=== PATIENT | male | born 1960 | race Two or more races ===

== ENCOUNTER 2025-09-19 13:07 | Inpatient (IN) | payer MEDICARE, OTHER ==
[~2025-09-19] VITALS: Ht 165.1 cm; Wt 90.3 kg
[2025-09-19] MEDS ORDERED: IPRA3AMP23 IH (14:45)
[2025-09-19] MEDS ORDERED: PANT40TA49 PO (14:45)
[2025-09-19] MEDS ORDERED: MIDO10TA PO (14:45)
[2025-09-19] MEDS ORDERED: APIX5TAB PO (14:45)
[2025-09-19] MEDS ORDERED: INSU100V39 SQ (14:45)
[2025-09-19] MEDS ORDERED: FAMO20TA8 PO (14:45)
[2025-09-19] MEDS ORDERED: GABA400C PO (14:45)
[2025-09-19] MEDS ORDERED: POLY17PO4 PO (14:45)
[2025-09-19] MEDS ORDERED: GLUC1KIT IJ (14:45)
[2025-09-19] MEDS ORDERED: BISA10SU11 RC (14:45)
[2025-09-19] MEDS ORDERED: CALC-343 PO (14:45)
[2025-09-19] MEDS ORDERED: IBUP-1957 PO (14:45)
[2025-09-19] MEDS ORDERED: LACT10SO29 PO (14:45)
[2025-09-19] MEDS ORDERED: MELA5TAB PO (14:45)
[2025-09-19] MEDS ORDERED: ASCO250T23 PO (14:45)
[2025-09-19] MEDS ORDERED: ONDA-97 PO (14:45)
[2025-09-19] MEDS ORDERED: HYDR-4303 PO (14:45)
[2025-09-19] MEDS ORDERED: LIDO700A30 TP (14:45)
[2025-09-19] MEDS ORDERED: FOLI0.8T2 PO (14:45)
[2025-09-19 14:56] LABS: PLATELET COUNT (AUTO) 711 K/uL (150-450); RED BLOOD CELL COUNT(AUTO) 4.11 MIL/uL (4.5-6.0); RED CELL DISTRIBUTION WIDTH 16.8 % (11.5-15.0); WHITE BLOOD COUNT (AUTO) 18.8 K/uL (4.3-11.0)
[2025-09-19 15:05] LABS: CALCIUM, SERUM 10.0 mg/dL (8.5-10.1); CREATININE 3.5 mg/dL (0.6-1.3); SODIUM SERUM 133.0 mmol/L (136-145); UREA NITROGEN, BLOOD 22.0 mg/dL (7-18)
[2025-09-19] MEDS ORDERED: CEFTRIAXONE 1GM BAG (ER ONLY) 50 ML IV ONE (15:59)
[2025-09-19] MEDS: CEFTRIAXONE 1 G in IV D5W 50 ML IV ONE (16:00)
[2025-09-19] MEDS: AZITHROMYCIN 500 MG in IV D5W 250 ML IV ONE (16:30)
[2025-09-19] MEDS ORDERED: POLYETHYLENE GLYCOL 3350 17 GM POWD.PACK PO PRN (17:00)
[2025-09-19] MEDS ORDERED: MAG HYDROX/AL HYDROX/SIMETH 30 ML UDC PO PRN (17:00)
[2025-09-19] MEDS ORDERED: BISACODYL SUPP (10 MG) 10 MG/SUPP.RECT SUPP.RECT RC PRN (17:00)
[2025-09-19] MEDS: APIXABAN 5 MG TABLET PO SCH (17:00)
[2025-09-19] MEDS ORDERED: Z GUARD REMEDY 4 OZ OINT TP PRN (17:00)
[2025-09-19] MEDS ORDERED: IBUPROFEN 800 MG TABLET PO PRN (17:00)
[2025-09-19] MEDS ORDERED: ONDANSETRON HCL/PF 4 MG/2 ML VIAL IVP PRN (17:00)
[2025-09-19] MEDS: FAMOTIDINE (20 MG) 20 MG TABLET PO SCH (17:00)
[2025-09-19] MEDS ORDERED: MAGNESIUM HYDROXIDE 30 ML UDC PO PRN (17:00)
[2025-09-19] MEDS ORDERED: Medication Not On Formulary EA (Ondansetron Hcl 4 MG) PO PRN (17:00)
[2025-09-19] MEDS ORDERED: LIDOCAINE 5% (PATCH) 1 EA PATCH TP PRN (17:00)
[2025-09-19] MEDS ORDERED: ZOLPIDEM TARTRATE 5 MG TABLET PO PRN (17:00)
[2025-09-19] MEDS ORDERED: IBUPROFEN 400 MG TABLET PO PRN (17:30)
[2025-09-19] MEDS ORDERED: ALBUTEROL FS 2.5 MG/3 ML VIAL.NEB NEB PRN (17:30)
[2025-09-19] MEDS ORDERED: IPRATROPIUM NEB FS 0.5 MG/2.5 ML AMPUL.NEB NEB PRN (17:30)
[2025-09-19] MEDS ORDERED: CALCIUM CARBONATE 500 MG TAB.CHEW PO PRN (17:30)
[2025-09-19 20:00] VITALS: BP 124/67; TEMP 97.7; O2SAT 95
[2025-09-19] MEDS: LACTULOSE 10 G/15 ML UDC (PYXIS) PO SCH (21:48)
[2025-09-19] MEDS ORDERED: DOSING PER PHARMACY-VANCOMYCIN IV XX PRN (22:00)
[2025-09-19] MEDS: VANCOMYCIN 1 GM /D5W 250 ML PB IV ONE (22:30)
[2025-09-19] MEDS ORDERED: CEFEPIME 1 GM VIAL ONE (22:39)
[2025-09-19] MEDS: CEFEPIME 1 GM in IV D5W 50 ML IV SCH (22:46)
[2025-09-19] MEDS: VANCOMYCIN 1.5 GM in IV D5W 500 ML IV ONE (23:17)
[2025-09-20] VITALS: BP 124/82; TEMP 98.1; O2SAT 100
[2025-09-20 04:00] VITALS: BP 117/74; TEMP 98.6; O2SAT 97
[2025-09-20 07:00] VITALS: BP 114/72; TEMP 97.3; O2SAT 100
[2025-09-20 07:48] LABS: PLATELET COUNT (AUTO) 541 K/uL (150-450); RED BLOOD CELL COUNT(AUTO) 3.96 MIL/uL (4.5-6.0); RED CELL DISTRIBUTION WIDTH 16.7 % (11.5-15.0); WHITE BLOOD COUNT (AUTO) 11.7 K/uL (4.3-11.0)
[2025-09-20 07:59] LABS: CALCIUM, SERUM 9.7 mg/dL (8.5-10.1); CREATININE 4.4 mg/dL (0.6-1.3); PHOSPHORUS 3.5 mg/dL (2.5-4.9); SODIUM SERUM 131.0 mmol/L (136-145); UREA NITROGEN, BLOOD 31.0 mg/dL (7-18)
[2025-09-20] MEDS: PANTOPRAZOLE 40 MG TABLET.DR PO SCH (08:22)
[2025-09-20] MEDS: ASCORBIC ACID 500 MG TABLET PO SCH (08:22)
[2025-09-20] MEDS: GABAPENTIN 400 MG CAPSULE PO SCH (08:22)
[2025-09-20] MEDS: VIT B CMPLX 3/FA/VIT C/BIOTIN 1 TAB TABLET PO SCH (08:22)
[2025-09-20 11:00] VITALS: BP 100/65; TEMP 97.3; O2SAT 100
[2025-09-20] MEDS ORDERED: DEXTROSE 50%-WATER 50 ML DISP.SYRIN IV PRN (11:00)
[2025-09-20] MEDS: HYDROCODONE/APAP 5/325MG TABLET PO PRN (11:01)
[2025-09-20] MEDS: BLOOD SUGAR DIAGNOSTIC 1 EACH STRIP VI SCH (11:47)
[2025-09-20] MEDS: INSULIN REGULAR, HUMAN 100 UNIT/ML 3 ML VIAL SQ PRN (11:51)
[2025-09-20] MEDS ORDERED: GLUCAGON,HUMAN RECOMBINANT 1 MG/VIAL VIAL IV PRN (14:00)
[2025-09-20 15:00] VITALS: BP 123/71; TEMP 97.3; O2SAT 100
[2025-09-20] MEDS ORDERED: CEFTRIAXONE 1 G in IV D5W 50 ML IV SCH (16:00)
[2025-09-20] MEDS ORDERED: AZITHROMYCIN 500 MG in IV D5W 250 ML IV SCH (16:30)
[2025-09-20 20:00] VITALS: BP 110/72; TEMP 97.3; O2SAT 100
[2025-09-21] VITALS: BP 112/69; TEMP 98.1; O2SAT 100
[2025-09-21 04:00] VITALS: BP 117/52; TEMP 98.1; O2SAT 100
[2025-09-21 06:53] LABS: PLATELET COUNT (AUTO) 580 K/uL (150-450); RED BLOOD CELL COUNT(AUTO) 4.24 MIL/uL (4.5-6.0); RED CELL DISTRIBUTION WIDTH 16.1 % (11.5-15.0); WHITE BLOOD COUNT (AUTO) 12.4 K/uL (4.3-11.0)
[2025-09-21 07:22] LABS: CALCIUM, SERUM 10.0 mg/dL (8.5-10.1); CREATININE 5.4 mg/dL (0.6-1.3); PHOSPHORUS 4.4 mg/dL (2.5-4.9); SODIUM SERUM 131.0 mmol/L (136-145); UREA NITROGEN, BLOOD 39.0 mg/dL (7-18)
[2025-09-21 08:00] VITALS: BP 126/71; TEMP 97.7; O2SAT 100
[2025-09-21 12:00] VITALS: BP 90/56; TEMP 97.6; O2SAT 94
[2025-09-21] MEDS: ALBUMIN 25% 25 GM in PREMIX 1 EA IV STA (17:59)
[2025-09-21 20:00] VITALS: BP 137/75; TEMP 97.4; TEMP 97.5; O2SAT 100
[2025-09-21] MEDS: VANCOMYCIN 500 MG in IV D5W 100 ML IV PRN (21:04)
[2025-09-21] MEDS: *INSULIN REGULAR(HUMULIN R)HUM 100 UNIT/ML VIAL SQ PRN (22:24)
[2025-09-22] VITALS: BP 128/71; TEMP 97.7; O2SAT 98
[2025-09-22 05:00] VITALS: BP 126/56; TEMP 97.8; O2SAT 100
[2025-09-22 06:40] LABS: PLATELET COUNT (AUTO) 564 K/uL (150-450); RED BLOOD CELL COUNT(AUTO) 4.01 MIL/uL (4.5-6.0); RED CELL DISTRIBUTION WIDTH 16.8 % (11.5-15.0); WHITE BLOOD COUNT (AUTO) 12.1 K/uL (4.3-11.0)
[2025-09-22 06:55] LABS: CALCIUM, SERUM 9.8 mg/dL (8.5-10.1); CREATININE 3.9 mg/dL (0.6-1.3); PHOSPHORUS 2.8 mg/dL (2.5-4.9); SODIUM SERUM 133.0 mmol/L (136-145); UREA NITROGEN, BLOOD 20.0 mg/dL (7-18)
[2025-09-22 08:00] VITALS: BP 132/68; TEMP 97.7; O2SAT 100
[2025-09-22 16:00] VITALS: BP 105/57; TEMP 98.1; O2SAT 98
[2025-09-22 20:00] VITALS: BP 119/69; TEMP 99; O2SAT 99
[2025-09-23 08:00] VITALS: BP 120/82; TEMP 99; O2SAT 99
[2025-09-23 11:23] LABS: PLATELET COUNT (AUTO) 561 K/uL (150-450); RED BLOOD CELL COUNT(AUTO) 4.15 MIL/uL (4.5-6.0); RED CELL DISTRIBUTION WIDTH 16.9 % (11.5-15.0); WHITE BLOOD COUNT (AUTO) 13.8 K/uL (4.3-11.0)
[2025-09-23 11:33] LABS: CALCIUM, SERUM 10.1 mg/dL (8.5-10.1); CREATININE 5.5 mg/dL (0.6-1.3); PHOSPHORUS 4.0 mg/dL (2.5-4.9); SODIUM SERUM 135.0 mmol/L (136-145); UREA NITROGEN, BLOOD 29.0 mg/dL (7-18)
[2025-09-23 12:00] VITALS: BP 113/72; TEMP 97.6; O2SAT 96
[2025-09-23] MEDS: BETAMETHASONE DIP 0.05% CREAM 15 GM TUBE TP SCH (13:07)
[2025-09-23 16:00] VITALS: BP 139/83; TEMP 98.6; O2SAT 98
[2025-09-23] MEDS: NEPRO VAN 237 ML CAN PO SCH (17:00)
[2025-09-23 20:00] VITALS: BP 114/75; TEMP 98.1; O2SAT 99
[2025-09-23] MEDS: MEROPENEM 500 MG in IV NS 0.9% 50 ML IV SCH (22:27)
[2025-09-24 07:25] LABS: PLATELET COUNT (AUTO) 569 K/uL (150-450); RED BLOOD CELL COUNT(AUTO) 3.99 MIL/uL (4.5-6.0); RED CELL DISTRIBUTION WIDTH 16.7 % (11.5-15.0); WHITE BLOOD COUNT (AUTO) 13.8 K/uL (4.3-11.0)
[2025-09-24 07:47] LABS: CALCIUM, SERUM 10.4 mg/dL (8.5-10.1); CREATININE 5.6 mg/dL (0.6-1.3); PHOSPHORUS 3.7 mg/dL (2.5-4.9); SODIUM SERUM 135.0 mmol/L (136-145); UREA NITROGEN, BLOOD 31.0 mg/dL (7-18)
[2025-09-24 08:00] VITALS: BP 112/63; TEMP 97.3; O2SAT 100
[2025-09-24] MEDS: ALTEPLASE CATHFLO 2 MG/VIAL XX ONE (11:57)
[2025-09-24 16:00] VITALS: BP 114/60; TEMP 98.8; O2SAT 99
[2025-09-24 20:00] VITALS: BP 144/99; TEMP 98.2; O2SAT 98
[2025-09-25 06:39] LABS: PLATELET COUNT (AUTO) 487 K/uL (150-450); RED BLOOD CELL COUNT(AUTO) 3.92 MIL/uL (4.5-6.0); RED CELL DISTRIBUTION WIDTH 16.8 % (11.5-15.0); WHITE BLOOD COUNT (AUTO) 11.1 K/uL (4.3-11.0)
[2025-09-25 06:54] LABS: CALCIUM, SERUM 9.9 mg/dL (8.5-10.1); CREATININE 4.0 mg/dL (0.6-1.3); PHOSPHORUS 3.0 mg/dL (2.5-4.9); SODIUM SERUM 130.0 mmol/L (136-145); UREA NITROGEN, BLOOD 18.0 mg/dL (7-18)
[2025-09-25 08:00] VITALS: BP 107/73; TEMP 98.6; O2SAT 94
[2025-09-25 16:00] VITALS: BP 107/70; TEMP 97.9; O2SAT 99
[2025-09-25 20:00] VITALS: BP 94/53; TEMP 97.2; O2SAT 100
[2025-09-26 13:28] LABS: CALCIUM, SERUM 9.8 mg/dL (8.5-10.1); CREATININE 3.1 mg/dL (0.6-1.3); SODIUM SERUM 133.0 mmol/L (136-145); UREA NITROGEN, BLOOD 15.0 mg/dL (7-18)
[2025-09-26 13:37] LABS: PLATELET COUNT (AUTO) 541 K/uL (150-450); RED BLOOD CELL COUNT(AUTO) 3.95 MIL/uL (4.5-6.0); RED CELL DISTRIBUTION WIDTH 17.2 % (11.5-15.0); WHITE BLOOD COUNT (AUTO) 11.9 K/uL (4.3-11.0)
[2025-09-26] MEDS ORDERED: GADOTERATE MEGLUMINE 10 MMOL/20 ML VIAL IV ONE (14:58)
[2025-09-26 16:00] VITALS: BP 93/64; TEMP 97.2; O2SAT 98
[2025-09-26 20:00] VITALS: BP 88/53; TEMP 98.1; O2SAT 98
[2025-09-26] MEDS: MIDODRINE HCL (5MG) 5 MG TABLET PO PRN (20:49)
[2025-09-27] VITALS: BP 100/58; TEMP 97.8; O2SAT 100
[2025-09-27 05:00] VITALS: BP 114/79; TEMP 98; O2SAT 96
[2025-09-27 08:00] VITALS: BP 116/75; TEMP 97.5; O2SAT 99
[2025-09-27] MEDS ORDERED: BETA15CR4 TP (08:56)
[2025-09-27 16:00] VITALS: BP 98/67; TEMP 98.1; O2SAT 99
[2025-09-27 20:00] VITALS: BP 70/53; TEMP 98.2; O2SAT 97
[2025-09-27] MEDS: ACETAMINOPHEN 325 MG TABLET PO PRN (20:35)
[2025-09-27] MEDS ORDERED: DOSING PER PHARMACY-GENTAMICIN IV XX PRN (23:00)
[2025-09-27] MEDS ORDERED: GENTAMICIN 80 MG/2 ML VIAL ONE (23:37)
[2025-09-27] MEDS: GENTAMICIN 450 MG in IV D5W 100 ML IV ONE (23:53)
[2025-09-28 07:00] VITALS: BP 103/66; TEMP 97.5; O2SAT 98
[2025-09-28] MEDS ORDERED: GENTAMICIN 120 MG in IV D5W 50 ML IV PRN (07:00)
[2025-09-28] MEDS ORDERED: GENT40VI2 IM/IV (14:53)
[2025-09-28 15:00] VITALS: BP 106/73; TEMP 97.7; O2SAT 98
[2025-09-28 20:00] VITALS: BP 98/60; TEMP 97.7; O2SAT 99
== END 2025-09-28 21:07 | DRG 871 ==
LOC: ER 13:28 → MED 17:01 → TELE 17:55 → MED 09-22 08:56
PROVIDERS: ADMIT Student in an Organized Health Care Education/Training Program; ATTEND Internal Medicine
PROC: 5A1D70Z Performance of Urinary Filtration, Intermittent, Less than 6 Hours Per Day (ICD-10-PCS; principal; 2025-09-21)
DX: A41.51 Sepsis due to Escherichia coli [E. coli] (principal); N18.6 End stage renal disease; I13.2 Hypertensive heart and chronic kidney disease with heart failure and with stage 5 chronic kidney disease, or end stage renal disease; M46.26 Osteomyelitis of vertebra, lumbar region; R18.8 Other ascites; E87.1 Hypo-osmolality and hyponatremia; E11.22 Type 2 diabetes mellitus with diabetic chronic kidney disease; B96.20 Unspecified Escherichia coli [E. coli] as the cause of diseases classified elsewhere; Z99.2 Dependence on renal dialysis; Z79.01 Long term (current) use of anticoagulants; D64.9 Anemia, unspecified; E66.9 Obesity, unspecified; Z16.12 Extended spectrum beta lactamase (ESBL) resistance; D75.839 Thrombocytosis, unspecified; N48.5 Ulcer of penis; I48.91 Unspecified atrial fibrillation; E11.40 Type 2 diabetes mellitus with diabetic neuropathy, unspecified; Z79.4 Long term (current) use of insulin; N48.0 Leukoplakia of penis; Z93.6 Other artificial openings of urinary tract status; E83.89 Other disorders of mineral metabolism; I50.9 Heart failure, unspecified; M46.46 Discitis, unspecified, lumbar region; E11.69 Type 2 diabetes mellitus with other specified complication
CPT/HCPCS: 36415; 71045-TC; 72148-TC; 80048-TC; 80202-TC; 82962-TC; 83605-TC; 83735-TC; 84100-TC; 84443-TC; 85025-TC; 87040-TC; 87081-TC; 87186-TC; 90935-TC; 92526; 92611; 97110-TC; 97112-TC; 97530-TC; A4216; A4223; A6213; A6253; A6254; A6403; A9575; G0378; J0456; J0692; J0696; J1580; J1815; J2185; J2997; J3373; J3374; J7030; J7050; J7060; P9047